=== PATIENT | male | born 1945 | race Caucasian/White ===

== ENCOUNTER 2025-06-18 12:08 | Outpatient (CLI) | payer MEDICARE | END 2025-06-18 12:09 | disposition home or self-care (01) | LOC: SCSRAD 12:08 | PROVIDERS: ATTEND Nurse Practitioner Family | DX: R07.81 Pleurodynia (principal); S22.31XA Fracture of one rib, right side, initial encounter for closed fracture ==

== ENCOUNTER 2025-06-20 22:04 | Inpatient (IN) | payer MEDICARE, OTHER ==
[2025-06-20] MEDS ORDERED: Ondansetron PF 4 MG/2 ML Vial ONE (22:22)
[2025-06-20] MEDS ORDERED: Dextrose 50% Abboject 50 ML SYRINGE SLOW IVP PRN (23:05)
[2025-06-20] MEDS ORDERED: Ondansetron PF 4 MG/2 ML Vial IVP PRN (23:05)
[2025-06-20] MEDS ORDERED: hydrALAZINE 20 MG/ML VIAL SLOW IVP PRN (23:05)
[2025-06-20] MEDS ORDERED: Glucagon 1 MG/ML KIT IM PRN (23:05)
[2025-06-21] MEDS: Acetaminophen 325 MG TAB PO SCH (00:27)
[2025-06-21] MEDS: Ibuprofen 600 MG TAB PO SCH (00:28)
[2025-06-21] MEDS: Senokot S 8.6-50 MG TAB PO PRN (04:47)
[2025-06-21 06:32] LABS: Anion Gap 13 mmol/L (10-20); BUN (Urea Nitrogen) 23 mg/dL (8.4-25.7); Calc. Creatinine Clearance 52 mL/min (70-130); Calcium 8.3 mg/dL (7.8-10.44); Carbon Dioxide 23 mmol/L (23-31); Chloride 101 mmol/L (98-107); Glucose 86 mg/dL (83-110); Potassium 3.7 mmol/L (3.5-5.1); Sodium 133 mmol/L (136-145)
[2025-06-21 07:35] LABS: #Basophils 0.03 10x3/uL (0.0-0.2); #Eosinophils 0.03 10x3/uL (0.0-0.7); #Monocytes 0.91 10x3/uL (0.11-0.59); #Neutrophils 5.72 10x3/uL (1.40-6.50); %Basophils 0.4 % (0.0-1.0); %Eosinophils 0.4 % (0.0-10.0); %Lymphocytes 14.4 % (21.0-51.0); %Monocytes 11.5 % (0.0-10.0); %Neutrophils 72.5 % (42.0-75.0); Hematocrit 34.5 % (42.0-52.0); Hemoglobin 11.5 g/dL (14.0-18.0); Mean Corpuscular Hemoglobin 31.7 pg (27.0-31.0); Mean Corpuscular Volume 95.0 fL (78.0-98.0); Platelet Count 132 10x3/uL (130-400); Red Blood Cell (RBC) Count 3.63 mill/uL (4.70-6.10); White Blood Cell (WBC) Count 7.89 10x3/uL (4.8-10.8)
[2025-06-21] MEDS: Furosemide 40 MG TAB PO SCH (08:24)
[2025-06-21] MEDS: Pantoprazole 40 MG DR.TAB PO SCH (08:25)
[2025-06-21] MEDS: Methocarbamol 500 MG TAB PO SCH (08:25)
[2025-06-21] MEDS: Apixaban 5 MG TAB PO SCH (08:26)
[2025-06-21] MEDS: Finasteride 5 MG TAB PO SCH (08:26)
[2025-06-21] MEDS: Losartan 25 MG TAB PO SCH (08:27)
[2025-06-21 09:25] VITALS: BP 103/71; TEMP 97.6
[2025-06-21] MEDS ORDERED: Rosuvastatin 10 MG TAB PO SCH (21:00)
== END 2025-06-21 13:10 | disposition home or self-care (01) | DRG 184 ==
LOC: ERS 22:04 → SURG A 23:08
PROVIDERS: ADMIT Surgery; ATTEND Surgery
DX: S22.41XA Multiple fractures of ribs, right side, initial encounter for closed fracture (principal); I48.20 Chronic atrial fibrillation, unspecified; I10 Essential (primary) hypertension; E78.5 Hyperlipidemia, unspecified; J44.9 Chronic obstructive pulmonary disease, unspecified; Z96.641 Presence of right artificial hip joint; F17.210 Nicotine dependence, cigarettes, uncomplicated; Z98.890 Other specified postprocedural states; Z79.899 Other long term (current) drug therapy; Z90.49 Acquired absence of other specified parts of digestive tract; Z79.01 Long term (current) use of anticoagulants; W10.9XXA Fall (on) (from) unspecified stairs and steps, initial encounter; N40.0 Benign prostatic hyperplasia without lower urinary tract symptoms; Z85.038 Personal history of other malignant neoplasm of large intestine
CPT/HCPCS: 36415; 71045; 71260; 80048; 80053; 85025; 96374; 96375; 96376; G0390; Q9967